=== PATIENT | female | born 1960 | race Caucasian/White ===

== ENCOUNTER 2017-06-30 11:45 | Emergency (ER) | payer SELFPAY ==
[2017-06-30] MEDS ORDERED: Ketorolac Tromethamine 60 MG/2 ML VIAL ONE (13:00)
[2017-06-30] MEDS ORDERED: Methocarbamol 500 MG TAB PO SCH (13:15)
== END 2017-06-30 13:45 | disposition home or self-care (01) ==
LOC: ERS 11:45
DX: M54.41 Lumbago with sciatica, right side (principal); E03.9 Hypothyroidism, unspecified; I10 Essential (primary) hypertension; F41.9 Anxiety disorder, unspecified; F17.210 Nicotine dependence, cigarettes, uncomplicated
CPT/HCPCS: 96372; J1885

== ENCOUNTER 2020-06-13 13:45 | Outpatient (CLI) | payer MEDICARE | END 2020-06-13 13:46 | disposition home or self-care (01) | LOC: LABBT 13:45 | PROVIDERS: ATTEND Student in an Organized Health Care Education/Training Program | DX: Z01.818 Encounter for other preprocedural examination (principal); E04.9 Nontoxic goiter, unspecified; E05.00 Thyrotoxicosis with diffuse goiter without thyrotoxic crisis or storm; J34.2 Deviated nasal septum; Z20.822 Contact with and (suspected) exposure to COVID-19 | CPT/HCPCS: 80048; 85014; 93005; U0003; U0005; 87635; 93010 ==

== ENCOUNTER 2020-06-18 06:37 | Observation (INO) | payer MEDICARE ==
[2020-06-17 10:38] VITALS: BMI 29.8
[2020-06-18] MEDS ORDERED: Lidocaine 1% w/Epinephrine 1:100K 20 ML VIAL ONE (08:12)
[2020-06-18] MEDS ORDERED: Dexmedetomidine 200 MCG/2 ML VIAL ONE (08:18)
[2020-06-18] MEDS ORDERED: Phenylephrine 10 MG/ML VIAL ONE (08:18)
[2020-06-18] MEDS ORDERED: Fentanyl 100 MCG/2 ML VIAL ONE ×3 (08:18→13:27)
[2020-06-18] MEDS ORDERED: PROPOFOL 200 MG/20 ML VIAL ONE (08:25)
[2020-06-18] MEDS ORDERED: Ketorolac Tromethamine 30 MG/ML VIAL ONE (08:25)
[2020-06-18] MEDS ORDERED: Rocuronium Bromide 10 MG/ML (10ML VIAL) ONE (08:25)
[2020-06-18] MEDS ORDERED: Lidocaine 1% PF 5 ML VIAL ONE (08:25)
[2020-06-18] MEDS ORDERED: Ondansetron PF 4 MG/2 ML Vial ONE (08:25)
[2020-06-18] MEDS ORDERED: Dexamethasone 20 MG/5 ML VIAL ONE (08:25)
[2020-06-18] MEDS ORDERED: Ondansetron PF 4 MG/2 ML Vial IVP PRN (12:06)
[2020-06-18] MEDS ORDERED: HYDROcodone/Acetaminophen 5/325 mg Tablet PO PRN (12:06)
[2020-06-18 12:53] LABS: Calcium 9.2 mg/dL (7.8-10.44); Magnesium 1.2 mg/dL (1.6-2.6); Phosphorus 4.6 mg/dL (2.3-4.7)
[2020-06-18] MEDS ORDERED: PACU-Morphine 4MG/ML VIAL SLOW IVP PRN (13:29)
[2020-06-18] MEDS ORDERED: HYDROmorphone 2 MG/ML VIAL SLOW IVP PRN (13:29)
[2020-06-18] MEDS ORDERED: Promethazine HCl 25 MG/ML VIAL SLOW IVP PRN (13:29)
[2020-06-18] MEDS ORDERED: Ondansetron HCl/PF 4 MG/2 ML Vial IVP PRN (13:29)
[2020-06-18] MEDS ORDERED: Promethazine HCl 25 MG/ML VIAL IM PRN (13:29)
[2020-06-18] MEDS ORDERED: HYDROmorphone 2 MG/ML VIAL ONE (14:07)
[2020-06-18] MEDS ORDERED: HYDROcodone/Acetaminophen 5/325 mg Tablet ONE (14:48)
[2020-06-18] MEDS: HYDROcodone/Acetaminophen 5/325 mg Tablet PO PRN ×3 (15:09→22:32)
[2020-06-18] MEDS: Calcitriol 0.25 MCG CAP PO SCH (15:43)
[2020-06-18] MEDS: Lactated Ringer's 1,000 ML IV SCH (16:00)
[2020-06-18] MEDS: Calcium Carbonate 500 MG ChewTAB PO SCH ×2 (16:06→19:41)
[2020-06-18] MEDS: Docusate 100 MG CAP PO SCH (19:41)
[2020-06-18] MEDS ORDERED: Magnesium 2 GM/50 ML 2 GM in Premix Bag 1 BAG IVPB SCH (21:00)
[2020-06-18] MEDS ORDERED: tiZANidine HCl 4 MG TAB PO PRN (21:15)
[2020-06-18] MEDS ORDERED: Amitriptyline HCl 25 MG TAB PO SCH (21:15)
[2020-06-18] MEDS ORDERED: diphenhydrAMINE 25 MG CAP PO PRN (22:07)
[2020-06-19 05:51] LABS: Calcium 9.1 mg/dL (7.8-10.44); Magnesium 1.8 mg/dL (1.6-2.6); Phosphorus 3.7 mg/dL (2.3-4.7)
[2020-06-19] MEDS: HYDROcodone/Acetaminophen 5/325 mg Tablet PO PRN (06:10)
[2020-06-19] MEDS: Lactated Ringer's 1,000 ML IV SCH (07:30)
[2020-06-19 07:50] VITALS: BP 148/83; TEMP 98.8
[2020-06-19] MEDS: Calcium Carbonate 500 MG ChewTAB PO SCH (08:05)
[2020-06-19] MEDS: Calcitriol 0.25 MCG CAP PO SCH (08:05)
[2020-06-19] MEDS: Docusate 100 MG CAP PO SCH (08:06)
[2020-06-19] MEDS ORDERED: Amitriptyline HCl 25 MG TAB PO SCH (21:00)
== END 2020-06-19 09:47 | disposition home or self-care (01) ==
LOC: SDC 06:37 → SURG B 11:58
PROVIDERS: ADMIT Student in an Organized Health Care Education/Training Program; ATTEND Student in an Organized Health Care Education/Training Program
PROC: 0GTK0ZZ Resection of Thyroid Gland, Open Approach (ICD-10-PCS; principal; 2020-06-18)
PROC: 0GBJ0ZZ Excision of Thyroid Gland Isthmus, Open Approach (ICD-10-PCS; 2020-06-18)
DX: C73 Malignant neoplasm of thyroid gland (principal); D34 Benign neoplasm of thyroid gland; E04.2 Nontoxic multinodular goiter; E05.20 Thyrotoxicosis with toxic multinodular goiter without thyrotoxic crisis or storm; J34.2 Deviated nasal septum; Z79.899 Other long term (current) drug therapy
CPT/HCPCS: 60240; 82310 ×2; 83735 ×2; 83970 ×2; 84100 ×2; 88307; 88341; 88342; 96374; G0378 ×2; 36415; J1100; J1170; J1885; J2370; J2405; J2704; J3010; J3475; Q0163

== ENCOUNTER 2022-11-14 08:46 | Observation (INO) | payer MEDICARE ==
[2022-11-14] MEDS ORDERED: Acetaminophen 650 MG Suppository PR PRN (09:48)
[2022-11-14] MEDS ORDERED: Ondansetron PF 4 MG/2 ML Vial IVP PRN (09:48)
[2022-11-14] MEDS ORDERED: Morphine 4 MG/ML VIAL SLOW IVP PRN (10:21)
[2022-11-14] MEDS ORDERED: hydrALAZINE 20 MG/ML VIAL SLOW IVP PRN (10:26)
[2022-11-14] MEDS ORDERED: MD-Gastroview 120 ML BOT ONE (12:17)
[2022-11-14 15:37] VITALS: BMI 31.6
[2022-11-14] MEDS: Lactated Ringer's 1,000 ML IV SCH ×2 (17:47→18:57)
[2022-11-14] MEDS: Acetaminophen/Codeine 30-300mg Tablet PO PRN (20:37)
[2022-11-14] MEDS: Famotidine/PF 20 mg/2ml Vial SLOW IVP SCH (20:39)
[2022-11-14] MEDS ORDERED: Lisinopril 20 MG TAB PO SCH (21:00)
[2022-11-15] MEDS: Lactated Ringer's 1,000 ML IV SCH ×2 (03:28→14:24)
[2022-11-15] MEDS ORDERED: Levothyroxine Sodium 112 MCG TAB PO SCH (06:00)
[2022-11-15 06:04] LABS: #Basophils 0.1 thou/uL (0.0-0.2); #Eosinphils 0.2 thou/uL (0.0-0.7); #Monocytes 0.5 thou/uL (0.11-0.59); %Basophils 0.8 % (0.0-1.0); %Eosinophils 2.2 % (0.0-10.0); %Monocytes 6.3 % (0.0-10.0); %Neutrophils 66.4 % (42.0-75.0); Hematocrit 37.8 % (36.0-47.0); Hemoglobin 12.3 g/dL (12.0-16.0); Mean Corpuscular HGB CONC 32.5 g/dL (32.0-36.0); Mean Corpuscular Hemoglobin 31.7 pg (27.0-31.0); Mean Corpuscular Volume 97.4 fl (78.0-98.0); Mean Platelet Volume 9.8 fL (7.4-10.4); Platelet Count 343 10x3/uL (130-400); RBC Distribution Width 12.3 % (11.5-14.5); Red Blood Cell (RBC) Count 3.88 mill/uL (4.20-5.40); White Blood Cell (WBC) Count 7.6 10x3/uL (4.8-10.8)
[2022-11-15 06:12] LABS: Hemoglobin A1c 5.2 % (4.0-6.0)
[2022-11-15 06:27] LABS: ALT (SGPT) 11 U/L (8-55); AST (SGOT) 15 U/L (5-34); Albumin 3.8 g/dL (3.5-5.0); Alkaline Phosphatase 65 U/L (40-110); Anion Gap 12 mmol/L (10-20); BUN (Urea Nitrogen) 12 mg/dL (9.8-20.1); Bilirubin, Direct 0.2 mg/dL (0.1-0.3); Bilirubin, Total 0.4 mg/dL (0.2-1.2); Calc. Creatinine Clearance 100 mL/min (70-130); Calcium 8.8 mg/dL (7.8-10.44); Carbon Dioxide 23 mmol/L (22-29); Chloride 106 mmol/L (98-107); Estimated GFR 80; Glucose 99 mg/dL (70-105); Magnesium 1.2 mg/dL (1.6-2.6); Protein, Total 6.5 g/dL (6.0-8.3); Sodium 137 mmol/L (136-145)
[2022-11-15] MEDS ORDERED: Naloxegol 12.5 MG TAB PO SCH (07:30)
[2022-11-15] MEDS: Acetaminophen/Codeine 30-300mg Tablet PO PRN (07:53)
[2022-11-15] MEDS: Famotidine/PF 20 mg/2ml Vial SLOW IVP SCH (08:01)
[2022-11-15] MEDS ORDERED: Amlodipine 5 MG TAB PO SCH (09:00)
[2022-11-15] MEDS ORDERED: Magnesium Sulfate 3 GM in Sodium Chloride 0.9% 100 ML IVPB SCH (10:00)
[2022-11-15 15:58] VITALS: BP 144/80; TEMP 98.1
== END 2022-11-15 16:24 | disposition home or self-care (01) ==
LOC: INTOOBSV 09:42 → SURG A 09:42
PROVIDERS: ADMIT Family Medicine; ATTEND Internal Medicine
DX: K56.609 Unspecified intestinal obstruction, unspecified as to partial versus complete obstruction (principal); E03.9 Hypothyroidism, unspecified; N18.9 Chronic kidney disease, unspecified; F32.A Depression, unspecified; I12.9 Hypertensive chronic kidney disease with stage 1 through stage 4 chronic kidney disease, or unspecified chronic kidney disease; F39 Unspecified mood [affective] disorder; Z79.890 Hormone replacement therapy; Z90.710 Acquired absence of both cervix and uterus; Z79.899 Other long term (current) drug therapy
CPT/HCPCS: 74018; 74250; 80048; 80076; 83036; 83735; 84443; 85025; 96374; 96375 ×2; 96376; G0378 ×2; 36415; J2270; J2405; J3475; J3490; J7120; Q9963; S0028